=== PATIENT | female | born 2005 | race Caucasian/White ===

== ENCOUNTER 2023-02-24 13:13 | Emergency (ER) | payer OTHER ==
[2023-02-24] MEDS ORDERED: Morphine 4 MG/ML VIAL ONE (13:57)
[2023-02-24] MEDS ORDERED: Tetracaine 0.5% PF 4 ML BOT ONE (14:07)
[2023-02-24] MEDS ORDERED: Ondansetron PF 4 MG/2 ML Vial ONE ×2 (14:53→15:15)
[2023-02-24] MEDS ORDERED: HYDROcodone/Acetaminophen 10/325 mg Tablet ONE (14:53)
[2023-02-24] MEDS ORDERED: Metoclopramide HCl 10 MG/2 ML VIAL ONE (20:37)
== END 2023-02-24 15:07 | disposition home or self-care (01) ==
LOC: CSHERS 13:13
DX: S02.2XXA Fracture of nasal bones, initial encounter for closed fracture (principal); H21.01 Hyphema, right eye; V29.608A Unspecified rider of other motorcycle injured in collision with unspecified motor vehicles in traffic accident, initial encounter
CPT/HCPCS: 70450; 70486; 71045; 72125; 76377; 93005; 96374; 96375; J2270; J2405; J2765